=== PATIENT | male | born 2000 | race Caucasian/White ===

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

== ENCOUNTER 2018-01-13 11:43 | Emergency (ER) | payer OTHER ==
[~2018-01-13] VITALS: Ht 185.4 cm; Wt 68.0 kg
[2018-01-13 12:25] LABS: ABSOLUTE EOSINOPHILS 0.1 thou/uL (0.0-0.7); ABSOLUTE LYMPHOCYTES 1.5 thou/uL (0.8-5.3); ABSOLUTE MONOCYTES 0.3 thou/uL (0.0-1.2); ABSOLUTE NEUTROPHILS 2.4 thou/uL (1.6-8.1); BASOPHILS 0.5 %; EOSINOPHILS 2.4 %; HEMATOCRIT 43.1 % (42.0-52.0); HEMOGLOBIN 14.8 gm/dL (14.0-18.0); LYMPHOCYTES 34.9 %; MCHC 34.3 g/dL (28.0-37.0); MCV 87.4 fL (80.0-100.0); MONOCYTES 7.7 %; MPV 9.1 fl. (7.2-11.1); NUCLEATED RBCS 0 /100WBC; PLATELET COUNT* 144 thou/uL (150-400); POLYS 54.5 %; RBC 4.93 mil/uL (4.50-6.00); RDW-CV 13.3 % (10.5-14.5); WBC 4.4 thou/uL (4.0-11.0)
[2018-01-13 12:35] LABS: CALCIUM 9.5 mg/dL (8.5-10.1); CREATININE 1.1 mg/dL (0.6-1.3); POTASSIUM 3.2 mmol/L (3.5-5.1)
[2018-01-13 12:39] LABS: ALBUMIN 4.6 g/dL (3.4-5.0); TOTAL BILIRUBIN 1.4 mg/dL (<0.1-1.0); TOTAL PROTEIN 7.6 g/dL (6.4-8.2)
[2018-01-13 13:47] LABS: URINE BILIRUBIN NEGATIVE (Negative); URINE BLOOD NEGATIVE (Negative); URINE CLARITY CLEAR; URINE COLOR YELLOW; URINE GLUCOSE-RANDOM NEGATIVE (Negative); URINE KETONES 2+ (Negative); URINE LEUKOCYTES NEGATIVE (Negative); URINE NITRITE NEGATIVE (Negative); URINE PROTEIN NEGATIVE (Negative); URINE UROBILINOGEN 0.2 E.U./dl (0.2-1.0)
[2018-01-13 14:56] VITALS: BP 113/62
== END 2018-01-13 14:57 | disposition home or self-care (01) ==
LOC: M.ERS 11:43
PROVIDERS: Physician Assistant Surgical
DX: G43.909 Migraine, unspecified, not intractable, without status migrainosus (principal); R11.2 Nausea with vomiting, unspecified

== ENCOUNTER 2018-05-07 21:11 | Emergency (ER) | payer OTHER ==
[~2018-05-07] VITALS: Ht 185.4 cm; Wt 68.0 kg
[2018-05-07 23:02] VITALS: BP 112/64
== END 2018-05-07 23:02 | disposition home or self-care (01) ==
LOC: M.ERS 21:11
DX: H61.21 Impacted cerumen, right ear (principal); G43.909 Migraine, unspecified, not intractable, without status migrainosus

== ENCOUNTER 2020-03-16 12:17 | Emergency (ER) | payer OTHER ==
[~2020-03-16] VITALS: Ht 185.4 cm; Wt 70.3 kg
[2020-03-16 12:48] LABS: ABSOLUTE EOSINOPHILS 0.2 thou/uL (0.0-0.7); ABSOLUTE MONOCYTES 0.5 thou/uL (0.0-1.2); ABSOLUTE NEUTROPHILS 3.5 thou/uL (1.6-8.1); BASOPHILS 0.5 %; EOSINOPHILS 3.6 %; HEMATOCRIT 47.8 % (42.0-52.0); HEMOGLOBIN 16.4 gm/dL (14.0-18.0); LYMPHOCYTES 32.2 %; MCH 30.4 pg (26.0-34.0); MCHC 34.4 g/dL (28.0-37.0); MCV 88.5 fL (80.0-100.0); MONOCYTES 7.4 %; MPV 8.7 fl. (7.2-11.1); NUCLEATED RBCS 0 /100WBC; PLATELET COUNT* 195 thou/uL (150-400); POLYS 56.3 %; RDW-CV 12.8 % (10.5-14.5); WBC 6.3 thou/uL (4.0-11.0)
[2020-03-16 12:53] LABS: CALCIUM 8.8 mg/dL (8.5-10.1); POTASSIUM 3.3 mmol/L (3.5-5.1)
[2020-03-16 12:57] LABS: ALBUMIN 4.6 g/dL (3.4-5.0); TOTAL BILIRUBIN 0.9 mg/dL (<0.1-1.0); TOTAL PROTEIN 7.7 g/dL (6.4-8.2)
[2020-03-16 13:55] LABS: URINE BILIRUBIN NEGATIVE (Negative); URINE BLOOD NEGATIVE (Negative); URINE CLARITY CLEAR; URINE COLOR YELLOW; URINE GLUCOSE-RANDOM NEGATIVE (Negative); URINE KETONES NEGATIVE (Negative); URINE LEUKOCYTES-REFLEX NEGATIVE (Negative); URINE NITRITE-REFLEX NEGATIVE (Negative); URINE PROTEIN NEGATIVE (Negative); URINE UROBILINOGEN 0.2 E.U./dl (0.2-1.0)
[2020-03-16 14:01] VITALS: BP 122/54
== END 2020-03-16 14:01 | disposition home or self-care (01) ==
LOC: M.ERS 12:17
PROVIDERS: Family Medicine
DX: R10.13 Epigastric pain (principal); Z20.828 Contact with and (suspected) exposure to other viral communicable diseases; R10.12 Left upper quadrant pain; R11.2 Nausea with vomiting, unspecified; G43.909 Migraine, unspecified, not intractable, without status migrainosus

== ENCOUNTER 2020-06-01 14:45 | Emergency (ER) | payer OTHER ==
[~2020-06-01] VITALS: Ht 185.4 cm; Wt 61.2 kg
[~2020-06-01 14:45] MED LIST changes: +BENTYL 10 MG CA10 M1 PO; +ZOFRAN ODT4 MG DISSOLVE
[2020-06-01 14:48] VITALS: BP 123/74
[2020-06-01 15:11] LABS: ABSOLUTE EOSINOPHILS 0.2 thou/uL (0.0-0.7); ABSOLUTE LYMPHOCYTES 2.6 thou/uL (0.8-5.3); ABSOLUTE NEUTROPHILS 6.3 thou/uL (1.6-8.1); BASOPHILS 0.5 %; EOSINOPHILS 1.7 %; HEMATOCRIT 46.9 % (42.0-52.0); LYMPHOCYTES 25.5 %; MCHC 34.2 g/dL (28.0-37.0); MCV 87.7 fL (80.0-100.0); MONOCYTES 9.8 %; NUCLEATED RBCS 0 /100WBC; PLATELET COUNT* 187 thou/uL (150-400); POLYS 62.5 %; RBC 5.35 mil/uL (4.50-6.00); RDW-CV 12.9 % (10.5-14.5)
[2020-06-01 15:26] LABS: CALCIUM 9.4 mg/dL (8.5-10.1); CREATININE 1.1 mg/dL (0.6-1.3); POTASSIUM 3.6 mmol/L (3.5-5.1)
[2020-06-01 15:36] LABS: ALBUMIN 4.5 g/dL (3.4-5.0); DIRECT BILIRUBIN 0.2 mg/dL (<0.1-0.3); MAGNESIUM 2.2 mg/dL (1.8-2.4); PHOSPHORUS* 3.4 mg/dL (2.5-4.9); TOTAL BILIRUBIN 0.8 mg/dL (<0.1-1.0); TOTAL PROTEIN 7.4 g/dL (6.4-8.2)
[2020-06-01 15:39] LABS: SALICYLATE < 2.8 mg/dL (2.8-20.0)
[2020-06-01 15:40] LABS: ACETAMINOPHEN < 2 ug/mL (10-30); ALCOHOL < 10 mg/dL (<10)
--- NOTE | 2020-06-01 15:54 | EKG ---
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: [facility] : 2000 Requested By: Zafar Lance Order Number: [id number] MD: Rayo Oneill Measurements Intervals Iraan Rate: 50 P: 71 DC: 161 QRS: 83 QRSD: 88 T: 63 QT: 456 QTc: 416 Interpretive Statements Sinus rhythm ST elevation, consider early repolarization Baseline wander in lead(s) III,V1,V2,V3,V4 No previous ECG available for comparison Electronically Signed On 06-01-2020 15:54:42 SHANK TAPER by Rayo Oneill [email or web address] <ELECTRONICALLY SIGNED> By: Rayo Oneill MD, FACC 06/01/20 1554 1451 1451 Rayo Oneill MD, FAC /EPI
[2020-06-01 17:21] LABS: URINE BILIRUBIN NEGATIVE (Negative); URINE BLOOD NEGATIVE (Negative); URINE CLARITY CLEAR; URINE COLOR YELLOW; URINE GLUCOSE-RANDOM NEGATIVE (Negative); URINE KETONES NEGATIVE (Negative); URINE LEUKOCYTES NEGATIVE (Negative); URINE NITRITE NEGATIVE (Negative); URINE PROTEIN NEGATIVE (Negative); URINE UROBILINOGEN 0.2 E.U./dl (0.2-1.0)
[2020-06-01 17:29] LABS: AMP/METHAMP Negative (Negative); BARBITURATES Negative (Negative); BENZODIAZEPINES Negative (Negative); COCAINE Negative (Negative); METHADONE Negative (Negative); OPIATES Negative (Negative); PCP Negative (Negative); THC POSITIVE (Negative)
[2020-06-01 21:34] VITALS: BP 134/70
[2020-06-01 22:16] VITALS: BP 113/39
--- NOTE | 2020-06-02 08:53 | EKG ---
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: [place] : 2000 Requested By: Zafar Lance Order Number: [id number] MD: Pelon Root Measurements Intervals Mullen Rate: 43 P: 76 ND: 174 QRS: 80 QRSD: 82 T: 71 QT: 453 QTc: 384 Interpretive Statements Sinus bradycardia early repolarization Lateral leads are also involved Compared to ECG 06/01/2020 14:51:38 no change Electronically Signed On 06-02-2020 8:53:25 ASSISTANT PROFESSOR OF NURSING by Pelon Root [email or web address] <ELECTRONICALLY SIGNED> By: Pelon Root MD, [facility] 06/02/20 0853 1625 1625 Pelon Root MD, [facility] /EPI
== END 2020-06-01 22:35 | disposition home or self-care (01) ==
LOC: M.ERS 14:45 → M.TBA-ER 17:34 → M.ERS 17:35 → M.TBA-ER 17:35 → M.ERS 22:35 → M.TBA-ER 22:35
PROVIDERS: Emergency Medicine
DX: R07.89 Other chest pain (principal); Z20.822 Contact with and (suspected) exposure to COVID-19; G43.909 Migraine, unspecified, not intractable, without status migrainosus

== ENCOUNTER 2021-03-10 02:55 | Emergency (ER) | payer OTHER ==
[~2021-03-10] VITALS: Ht 185.4 cm; Wt 63.5 kg
[2021-03-10] MEDS ORDERED: BUTALB-APAP-CA1 EACH PO (04:46)
[2021-03-10 05:40] VITALS: BP 110/60
== END 2021-03-10 05:40 | disposition home or self-care (01) ==
LOC: M.ERS 02:55
DX: R51.9 Headache, unspecified (principal); G43.909 Migraine, unspecified, not intractable, without status migrainosus; Z88.8 Allergy status to other drugs, medicaments and biological substances

== ENCOUNTER 2021-06-01 16:46 | Emergency (ER) | payer OTHER ==
[~2021-06-01] VITALS: Ht 185.4 cm; Wt 63.5 kg
[~2021-06-01 16:46] MED LIST changes: +BUTALB-APAP-CA1 EACH PO
[2021-06-01 18:40] VITALS: BP 119/63
== END 2021-06-01 18:40 | disposition home or self-care (01) ==
LOC: M.ERS 16:46
DX: S61.217A Laceration without foreign body of left little finger without damage to nail, initial encounter (principal); G43.909 Migraine, unspecified, not intractable, without status migrainosus; Z79.899 Other long term (current) drug therapy; Z88.8 Allergy status to other drugs, medicaments and biological substances; W26.8XXA Contact with other sharp object(s), not elsewhere classified, initial encounter; Y93.89 Activity, other specified; Y92.89 Other specified places as the place of occurrence of the external cause; Y99.8 Other external cause status